=== PATIENT | male | born 1995 | race Caucasian/White ===

== ENCOUNTER → 2020-06-09 | Outpatient (CLI) | payer BC, OTHER ==
--- NOTE | 2020-06-09 16:05 | KCIC ---
MRI Lumbar Spine without contrast History: Low back strain, low back pain since lifting injury 1 month ago Technique: Multiplanar, multi sequential noncontrast MR imaging was performed of the lumbar spine. Comparison: None Findings: Lumbar vertebral body stature and AP alignment are maintained. There is a large hemangioma of the left anterior L3 vertebral body, hyperintense on T2 and and T1 sequences. Intervertebral disc spaces are overall maintained. Conus terminates at the superior aspect of L1. There is no significant focal marrow edema of the lumbar spine. L1-2, L2-3: These levels were not included on the axial images. Spinal canal and neural foramina are adequate. L3-L4: Spinal canal and neural foramina are adequate. There is mild prominence of posterior epidural fat centrally and mild buckling of the ligamentum flavum. L4-L5: There is mild prominence of posterior epidural fat and buckling of the ligamentum flavum. Spinal canal and neural foramina are adequate. L5-S1: Spinal canal and neural foramina are adequate. Impression: 1. There is no significant lumbar spinal stenosis or neural foramina compromise. Electronically signed by: Ben Salgado MD (06/09/2020 4:02 PM) [id number]
== END | disposition home or self-care (01) ==
LOC: KCIC MRI 14:45
PROVIDERS: ATTEND Nurse Practitioner
DX: S39.012A Strain of muscle, fascia and tendon of lower back, initial encounter (principal); D18.09 Hemangioma of other sites; X50.0XXA Overexertion from strenuous movement or load, initial encounter; Y93.89 Activity, other specified; Y92.89 Other specified places as the place of occurrence of the external cause; Y99.8 Other external cause status
CPT/HCPCS: 72148